=== PATIENT | male | born 1995 | race Caucasian/White ===

== ENCOUNTER 2020-02-02 22:33 | Emergency (ER) | payer OTHER ==
--- NOTE | 2020-02-02 23:33 | ED ---
Complex/Multi-Sys Presentation - HPI Summary HPI Summary: Patient is a 25 y/o M presenting to the ED for a chief complaint of chest pain and lightheadedness for the last week. Patient describes the chest pain as a tightness sensation in the right anterior chest that worsens with deep breaths. Patient also notes generalized body aches, dizziness, nausea, and diarrhea. He also reports rhinorrhea that he states is chronic and unchanged from baseline. He denies chills, cough, sore throat, or vomiting. Patient is unsure if he has had a fever or shortness of breath. Patient states his current symptoms were similar to a prior hepatitis C exacerbation. No alleviating factors are reported. He is receiving treatment at [facility]. PMHx is significant for substance abuse and hepatitis C. - History Of Current Complaint Chief Complaint: EDChestWallPain Time Seen by Provider: 02/02/20 22:58 Hx Obtained From: Patient Onset/Duration: Lasting Days Timing: Constant Severity Currently: Moderate Severity Initially: Moderate Aggravating Factor(s): Deep breaths Alleviating Factor(s): Nothing Associated Signs And Symptoms: Positive: Dizziness, Chest Pain, Nausea, Diarrhea. Negative: Cough, Vomiting - Allergies/Home Medications Allergies/Adverse Reactions: Allergies Allergy/AdvReac Type Severity Reaction Status Date / Time No Known Allergies Allergy Verified 02/02/20 22:47 Home Medications: Home Medications Atomoxetine HCl [Strattera] 18 mg PO DAILY 02/03/20 [History Confirmed 02/03/20] Buprenorp/Nalox 2-0.5 MG SL TB [Suboxone 2-0.5 mg SL TAB*] 16 mg PO DAILY [History Confirmed 02/03/20] Gabapentin 600 mg PO TID 02/03/20 [History Confirmed 02/03/20] Sertraline HCl [Zoloft] 200 mg PO DAILY 02/03/20 [History Confirmed 02/03/20] buPROPion HCL [Bupropion Xl] 300 mg PO DAILY 02/03/20 [History Confirmed ] busPIRone TAB* [Buspar TAB *] 15 mg PO DAILY 02/03/20 [History Confirmed ] PMH/Surg Hx/FS Hx/Imm Hx Previously Healthy: Yes Cardiovascular History: Denies: Hx Hypertension, Other Cardiovascular Problems/Disorders GI History: Reports: Other GI Disorders - Hepatitis C Sensory History: Denies: Hx Legally Blind, Hx Deafness Opthamlomology History: Denies: Hx Legally Blind EENT History: Denies: Hx Deafness Psychiatric History: Reports: Hx Substance Abuse - Surgical History Surgical History: None Surgery Procedure, Year, and Place: None Infectious Disease History: Yes Infectious Disease History: Reports: Hx Hepatitis - Hep C Denies: Traveled Outside the [place] in Last 30 Days - Family History Known Family History: Negative: Cardiac Disease, Hypertension, Diabetes - Social History Occupation: Employed Full-time Lives: Alone Alcohol Use: None Hx Substance Use: Yes Substance Use Type: Reports: Other - Carol Hx Tobacco Use: Yes Smoking Status (MU): Former Smoker Review of Systems Negative: Chills Positive: Nasal Discharge - Unchanged from baseline. Negative: Sore Throat Positive: Chest Pain Negative: Cough Positive: Diarrhea, Nausea. Negative: Vomiting Positive: Myalgia - Generalized body aches Neurological/Mental Status: Other - Positive dizziness and lightheadedness All Other Systems Reviewed And Are Negative: Yes Physical Exam - Summary Physical Exam Summary: Constitutional: Well-developed, Well-nourished, Alert. (-) Distressed Skin: Warm, Dry HENT: Normocephalic; Atraumatic Eyes: Conjunctiva normal Neck: Musculoskeletal ROM normal neck. (-) JVD, (-) Stridor, (-) Tracheal deviation Cardio: Rhythm regular, rate normal, Heart sounds normal; Intact distal pulses; The pedal pulses are 2+ and symmetric. Radial pulses are 2+ and symmetric. (-) Murmur Pulmonary/Chest wall: Effort normal. (-) Respiratory distress, (-) Wheezes, (-) Rales Abd: Soft, (-) tenderness, (-) Distension, (-) Guarding, (-) Rebound Musculoskeletal: (-) Edema Lymph: (-) Cervical adenopathy Neuro: Alert, Oriented x3 Psych: Mood and affect Normal Triage Information Reviewed: Yes Vital Signs On Initial Exam: Initial Vitals Temp Pulse Resp BP Pulse Ox 97.5 F 97 16 122/67 96 02/02/20 22:35 02/02/20 22:35 02/02/20 22:35 02/02/20 22:35 02/02/20 22:35 Vital Signs Reviewed: Yes Procedures - Sedation Patient Received Moderate/Deep Sedation with Procedure: No Diagnostics - Vital Signs Vital Signs Temp Pulse Resp BP Pulse Ox 02/02/20 22:35 97.5 F 97 16 122/67 96 - Laboratory Result Diagrams: 02/02/20 23:50 02/02/20 23:50 Lab Statement: Any lab studies that have been ordered have been reviewed, and results considered in the medical decision making process. - EKG 22:38 Cardiac Rate: NL - 92 BPM EKG Rhythm: Sinus Rhythm ST Segment: Normal Ectopy: None Summary of EKG Findings: EKG at 22:38 shows normal sinus rhythm at 92 bpm, normal ME, normal QRS, normal QTc, normal axis, normal ST, normal T-waves, normal and nonspecific EKG. Reviewed and interpreted by Dr. Paul. Complex Multi-Symp Course/Dx Course Of Treatment: Patient is a 25 y/o M presenting to the ED for a chief complaint of chest pain and lightheadedness for the last week. Patient describes the chest pain as a tightness sensation in the right anterior chest that worsens with deep breaths. Patient also notes generalized body aches, dizziness, nausea, and diarrhea. He also reports rhinorrhea that he states is chronic and unchanged from baseline. He denies chills, cough, sore throat, or vomiting. Patient is unsure if he has had a fever or shortness of breath. PMHx is significant for substance abuse and hepatitis C. On exam, unremarkable findings. EKG at 22:38 shows normal sinus rhythm at 92 bpm, normal ME, normal QRS, normal QTc, normal axis, normal ST, normal T-waves, normal and nonspecific EKG. Laboratory abnormal findings: Hgb 12.7, lipase <10. Patient will be discharged with a diagnosis of chest pain, diarrhea, and viral illness. Follow up with PCP in 1 day. - Diagnoses Provider Diagnoses: Diarrhea, Viral illness, Chest pain - Critical Care Time Critical Care Statement: Critical care time is provided exclusive of any time spent performing procedures. Discharge ED - Sign-Out/Discharge Documenting (check all that apply): Patient Departure - Discharge - Discharge Plan Condition: Stable Disposition: HOME Patient Education Materials: COVID-19 (Coronavirus Disease 2019) (ED) Print Language: CZECH Referrals: [facility] [Outside] Additional Instructions: RETURN TO THE EMERGENCY DEPARTMENT FOR CHANGING OR WORSENING SYMPTOMS. Follow up with your primary care physician in 1 day. - Billing Disposition and Condition Condition: STABLE Disposition: Home - Attestation Statements Document Initiated by Jered: Yes Documenting Scribe: Evie Salvador Provider For Whom Jered is Documenting (Include Credential): Yoselyn Villatoro MD Scribe Attestation: IEvie, scribed for Yoselyn Paul MD on 02/03/20 at 0647. Scribe Documentation Reviewed: Yes Provider Attestation: The documentation as recorded by the Evie rodriguez accurately reflects the service I personally performed and the decisions made by me, Yoselyn Paul MD Status of Scribe Document: Viewed
[2020-02-03 00:10] LABS: ABS Eosinophils 0.3 10^3/ul (0-0.6); ABS Monocytes 0.5 10^3/ul (0-0.8); ABS Neutrophils 2.6 10^3/ul (1.5-7.7); Eosinophil % 5.2 %; Hematocrit 38 % (42-52); Hemoglobin 12.7 g/dL (14.0-18.0); Lymphocyte % 36.2 %; Mean Corpuscular HGB Conc 34 g/dL (31-36); Mean Corpuscular Hemoglobin 27 pg (27-31); Mean Corpuscular Volume 79 fL (80-94); Mean Platelet Volume 6.5 fL (7.4-10.4); Platelet Count 301 10^3/uL (150-450); Red Blood Count 4.75 10^6 /uL (4.18-5.48); Red Cell Distribution Width 14 % (10-15); White Blood Count 5.5 10^3/uL (3.5-10.8)
[2020-02-03 00:27] LABS: ALT 39 U/L (7-52); AST 31 U/L (13-39); Albumin/Globulin Ratio 1.5 (1-3); Alkaline Phosphatase 95 U/L (34-104); Anion Gap 6 mmol/L (2-11); BUN/Creatinine Ratio 18.1 (8-20); Blood Urea Nitrogen 17 mg/dL (6-24); C Reactive Protein 2.63 mg/L (<8.01); CO2 Carbon Dioxide 28 mmol/L (22-32); Calcium 8.9 mg/dL (8.6-10.3); Chloride 103 mmol/L (101-111); EGFR African American 117.4 (>60); Globulin 2.6 g/dL (2-4); Glucose 99 mg/dL (70-100); Potassium 4.3 mmol/L (3.5-5.0); Sodium 137 mmol/L (135-145); Total Protein 6.6 g/dL (6.4-8.9)
[2020-02-03 00:41] LABS: Activated Partial Thrombo Time 38.5 seconds (26.0-38.0); INR 0.96 (0.82-1.09)
[2020-02-03 04:31] VITALS: BP 126/86
== END 2020-02-03 04:19 | disposition home or self-care (01) ==
LOC: ED 22:33
DX: B34.9 Viral infection, unspecified (principal); R07.9 Chest pain, unspecified; R42 Dizziness and giddiness; R11.0 Nausea; R19.7 Diarrhea, unspecified; Z87.891 Personal history of nicotine dependence; Z20.828 Contact with and (suspected) exposure to other viral communicable diseases
CPT/HCPCS: 36415; 80053; 83605; 83690; 84484; 85025; 85610; 85730; 86140; 87635; 93005; 99283